=== PATIENT | female | born 1975 | race Hispanic/Latino ===

== ENCOUNTER 2019-10-06 20:11 | Outpatient (CLI) | payer MEDICAID, SELFPAY | END 2019-10-06 20:12 | disposition home or self-care (01) | LOC: MADLAB 20:11 | PROVIDERS: ATTEND Family Medicine | DX: M54.5 Low back pain (principal) | CPT/HCPCS: 87086 ==

== ENCOUNTER 2020-12-25 17:40 | Outpatient (CLI) | payer SELFPAY | END 2020-12-25 17:41 | disposition home or self-care (01) | LOC: MADLAB 17:40 | PROVIDERS: ATTEND Family Medicine | DX: Z01.419 Encounter for gynecological examination (general) (routine) without abnormal findings (principal) | CPT/HCPCS: 88164; P3000 ==